=== PATIENT | male | born 1950 | race Caucasian/White ===

== ENCOUNTER 2017-02-12 07:40 | Day surgery (SDC) | payer OTHER, MEDICARE ==
[~2017-02-12] VITALS: Ht 193 cm; Wt 158.3 kg
[~2017-02-12 07:40] MED LIST: AMLODIPINE BESY10 MG PO; ASPIR 8181 M1 PO; COUMADIN10 MG PO; COUMADIN5 MG PO; FUROSEMIDE40 MG PO; HYDROCHLOROTHIA50 MG PO; MULTAQ400 MG PO; OMEPRAZOLE40 M1 PO; TOPROL XL50 MG PO; TRAMADOL HCL50 MG PO; TYLENOL EXTRA500 MG PO; VENLAFAXINE HC150 MG PO; WARFARIN SODIUM10 MG PO; ZOCOR40 MG PO
[2017-02-12 08:26] VITALS: BP 146/75
[2017-02-12 08:28] LABS: INTER. NORMALIZED RATIO 1.1; PROTHROMBIN TIME 10.7 (9.2-11.2)
[2017-02-12 15:42] VITALS: BP 143/73
[2017-02-12 19:18] VITALS: BP 146/86
[2017-02-12 23:24] VITALS: BP 161/73
[2017-02-13 04:29] VITALS: BP 117/68
[2017-02-13 08:35] VITALS: BP 155/73
[2017-02-13 12:24] VITALS: BP 122/59
[2017-02-13] MEDS ORDERED: DILAUDID2 MG PO (12:34)
== END 2017-02-13 13:27 | disposition home or self-care (01) ==
LOC: SDC 07:40 → 2SOUTH 13:44 → 3EAST 13:44 → 2SOUTH 13:44 → 3EAST 15:39
PROVIDERS: Neurological Surgery
PROC: 00NY0ZZ Release Lumbar Spinal Cord, Open Approach (ICD-10-PCS; principal; 2017-02-12)
DX: M48.06 Spinal stenosis, lumbar region (principal); M48.07 Spinal stenosis, lumbosacral region; M54.16 Radiculopathy, lumbar region; M47.9 Spondylosis, unspecified; M45.6 Ankylosing spondylitis lumbar region; K21.9 Gastro-esophageal reflux disease without esophagitis; G47.30 Sleep apnea, unspecified; E78.5 Hyperlipidemia, unspecified; I48.91 Unspecified atrial fibrillation; Z79.01 Long term (current) use of anticoagulants; E66.9 Obesity, unspecified; Z68.38 Body mass index [BMI] 38.0-38.9, adult
CPT/HCPCS: 72020; 76000; 85610; 94660; G0378; J0131; J0330; J0690; J1100; J1170; J2250; J2405; J3010; J3480; J7120; S0020